=== PATIENT | female | born 1985 | race Caucasian/White ===

== ENCOUNTER → 2016-12-07 | Outpatient (CLI) | payer OTHER ==
--- NOTE | 2016-12-08 07:14 | USB ---
Reason for exam: follow-up at short interval from prior study. History: Family history of breast cancer in maternal grandmother at age 30 and breast cancer in paternal grandmother at age 60. Physical Findings: Nurse Summary: Patient complains of right breast lump decreased in size, less tenderness (nurse mm). US Breast RT Right breast ultrasound including all four quadrants, the retroareolar region and axilla demonstrates node in axilla prior small lesion not seen, scanned palpable with patient sitting. These results were verbally communicated with the patient and result sheet given to the patient on 12/07/16. ASSESSMENT: Negative, BI-RAD 1 RECOMMENDATION: Routine screening mammogram of both breasts at age 41.
== END | disposition home or self-care (01) ==
LOC: RADUSWWP 14:35
PROVIDERS: ATTEND Obstetrics & Gynecology
DX: R92.8 Other abnormal and inconclusive findings on diagnostic imaging of breast (principal)

== ENCOUNTER → 2016-12-21 | Outpatient (CLI) | payer OTHER ==
--- NOTE | 2016-12-21 19:30 | CT ---
EXAMINATION TYPE: CT brain wo con DATE OF EXAM: 12/21/2016 7:24 PM COMPARISON: NONE HISTORY: Right sided headache with occasional stabbing pain CT DLP: 1121 mGycm Automated exposure control for dose reduction was used. FINDINGS: There is mucosal thickening in the right maxillary sinus. There is mild mucosal thickening also in le ft maxillary sinus and the anterior ethmoid air cells. The ventricles of normal size. There is no mass effect nor midline shift. There is no sign of intracr anial hemorrhage. The calvarium is intact. IMPRESSION: Mild maxillary sinusitis. Otherwise negative CT scan of the brain.
== END | disposition home or self-care (01) ==
LOC: RADCTMAIN 18:46
PROVIDERS: ATTEND Family Medicine
DX: R51 Headache (principal)
CPT/HCPCS: 70450

== ENCOUNTER 2017-01-09 11:31 | Emergency (ER) | payer OTHER ==
[2017-01-09 11:34] VITALS: RESP 18
--- NOTE | 2017-01-09 12:07 | ED ---
Nausea/Vomiting/Diarrhea HPI - General Chief complaint: Nausea/Vomiting/Diarrhea Stated complaint: vomitting, syncope Source: patient Mode of arrival: wheelchair Limitations: no limitations - History of Present Illness Initial comments: Patient is a 31-year-old female presents for evaluation for nausea vomiting and diarrhea since 1 AM this morning. Past medical history as below. Patient stated that she has thrown up multiple times over the course of time. States that she feels a little bit better. States that she has nausea. She started up stomach contents. She had chicken fajitas last night. Her daughter had a little bit of it and is not having symptoms. No sick contacts, recent travel, changes in medication, significant changes in diet. She does have pain to the epigastric and right lower quadrant area. It is a dull type of abdominal pain. When she was throwing up overnight, she stated that she stood up too fast and fell down. She did not really lose consciousness she said. There is no head trauma. She returned to baseline after. She denies fever, chills, headache, changes of vision, URI symptoms, shortness of breath, cough, chest pain, pain or burning with urination. - Related Data Previous Rx's Medication Instructions Recorded Dicyclomine [Bentyl] 20 mg PO QID 5 Days 01/09/17 Ondansetron Odt [Zofran Odt] 4 mg PO Q8HR PRN #10 tab 01/09/17 Allergies Allergy/AdvReac Type Severity Reaction Status Date / Time NSAIDS (Non-Steroidal Allergy Severe Nausea & Verified 01/09/17 11:42 Anti-Inflamma Vomiting Review of Systems ROS Statement: Those systems with pertinent positive or pertinent negative responses have been documented in the HPI. ROS Other: All systems not noted in ROS Statement are negative. Past Medical History Past Medical History: No Reported History Additional Past Medical History / Comment(s): cluster headaches History of Any Multi-Drug Resistant Organisms: None Reported Past Surgical History: Adenoidectomy, Tonsillectomy Additional Past Surgical History / Comment(s): tubes placed in ears-1990 Past Anesthesia/Blood Transfusion Reactions: Postoperative Nausea & Vomiting ( PONV) Past Psychological History: No Psychological Hx Reported Smoking Status: Never smoker Past Alcohol Use History: None Reported Past Drug Use History: None Reported - Past Family History Mother Family Medical History: Mitral Valve Prolapse (MVP) Father Family Medical History: Renal Disease General Exam Limitations: no limitations General appearance: alert, in no apparent distress, other (Nontoxic appearing) Head exam: Present: atraumatic, normocephalic, normal inspection Eye exam: Present: normal appearance, PERRL, EOMI. Absent: scleral icterus, conjunctival injection, periorbital swelling ENT exam: Present: normal exam, mucous membranes dry, other (Dry mucous membranes) Neck exam: Present: normal inspection. Absent: tenderness, meningismus, lymphadenopathy Respiratory exam: Present: normal lung sounds bilaterally. Absent: respiratory distress, wheezes, rales, rhonchi, stridor Cardiovascular Exam: Present: regular rate, normal rhythm, normal heart sounds. Absent: systolic murmur, diastolic murmur, rubs, gallop, clicks GI/Abdominal exam: Present: soft, tenderness, normal bowel sounds, other ( Patient did have some self-reported tenderness in the epigastric area in the right lower quadrant area. Does not have a true positive McBurney sign. She has a negative obturator sign, negative psoas sign, negative rebound tenderness , negative Rovsing sign, negative Montemayor sign. Her abdomen is soft. No peritoneal signs.). Absent: distended, guarding, rebound, rigid Extremities exam: Present: normal inspection, full ROM, normal capillary refill. Absent: tenderness, pedal edema, joint swelling, calf tenderness Back exam: Present: normal inspection Neurological exam: Present: alert, oriented X3, CN II-XII intact Psychiatric exam: Present: normal affect, normal mood Skin exam: Present: warm, dry, intact, normal color. Absent: rash Course Vital Signs 01/09/17 11:32 Temperature 97.9 F Pulse Rate 100 Respiratory 18 Rate Blood Pressure 125/74 O2 Sat by Pulse 97 Oximetry Medical Decision Making - Medical Decision Making Patient is a 31-year-old female who presents for evaluation for nausea vomiting and diarrhea. She had a vasovagal/syncope episode while vomiting but did not hit her head and return to normal neurologic function after. She does have abdominal pain to the epigastric and right lower quadrant area. Her history and physical exam findings are not 100% consistent with appendicitis. Discussed that she most likely has a viral gastroenteritis at this time. However, cannot rule this out. Discussed the possibility of getting a computed tomography scan to assess for appendicitis which she refused at this time. Discussed risks and benefits. We'll order basic labs with an EKG, Zofran, Pepcid, Maalox, Bentyl, IV fluids. -Lavatory studies as below. Largely unremarkable. 1330: Reviewed EKG. Sinus rhythm at 74. TX 116. QRS 68. QTc 412. S1 Q 3 T3 pattern. No previous EKGs for comparison. No ST changes otherwise. Add on D- dimer. 1430: D-dimer elevated at 0.53. Discussed the patient. We'll get a CTA of her chest to rule out pulmonary embolism at this time. 1520: CTA of the chest is negative for pulmonary embolism. Believe that her symptoms are related to a viral syndrome at this point. We'll discharge home with Zofran and Bentyl as it seemed to help her symptoms while she was in the emergency department. Discussed her EKG findings. Believe at this time it is a normal variant for her as a CTA of her chest was unremarkable. She is also not tachycardic nor is she hypoxic. Discussed importance of reevaluation in 12- 24 hours if she has persistent right lower quadrant abdominal pain. She states that she does not have pain at this time. She will either come back to our facility or go to her primary care's office for further evaluation. [place] diet. Frequent handwashing. Clear fluids. Discussed signs and symptoms on when to return to emergency department for further evaluation. Comfortable discharge home with follow-up. - Lab Data Result diagrams: 01/09/17 12:48 01/09/17 12:48 Lab Results 01/09/17 01/09/17 01/09/17 Range/Units 12:48 12:48 12:48 WBC 13.6 H (3.8-10.6) k/uL RBC 4.92 (3.80-5.40) m/uL Hgb 14.8 (11.4-16.0) gm/dL Hct 45.4 (34.0-46.0) % MCV 92.3 (80.0-100.0) fL MCH 30.1 (25.0-35.0) pg MCHC 32.6 (31.0-37.0) g/dL RDW 13.5 (11.5-15.5) % Plt Count 287 (150-450) k/uL Neutrophils % 93 % Lymphocytes % 2 % Monocytes % 3 % Eosinophils % 1 % Basophils % 0 % Neutrophils # 12.7 H (1.3-7.7) k/uL Lymphocytes # 0.3 L (1.0-4.8) k/uL Monocytes # 0.4 (0-1.0) k/uL Eosinophils # 0.1 (0-0.7) k/uL Basophils # 0.0 (0-0.2) k/uL D-Dimer (<0.60) mg/L FEU Sodium 142 (137-145) mmol/L Potassium 4.8 (3.5-5.1) mmol/L Chloride 103 (98-107) mmol/L Carbon Dioxide 27 (22-30) mmol/L Anion Gap 12 mmol/L BUN 16 (7-17) mg/dL Creatinine 0.80 (0.52-1.04) mg/dL Est GFR (MDRD) Af Amer >60 (>60 ml/min/1.73 sqM) Est GFR (MDRD) Non-Af >60 (>60 ml/min/1.73 sqM) Glucose 131 H (74-99) mg/dL Calcium 9.1 (8.4-10.2) mg/dL Total Bilirubin 0.8 (0.2-1.3) mg/dL AST 28 (14-36) U/L ALT 44 (9-52) U/L Alkaline Phosphatase 85 (38-126) U/L Total Protein 7.6 (6.3-8.2) g/dL Albumin 4.4 (3.5-5.0) g/dL Urine Color Urine Appearance (Clear) Urine pH (5.0-8.0) Ur Specific [place] (1.001-1.035) Urine Protein (Negative) Urine Glucose (UA) (Negative) Urine Ketones (Negative) Urine Blood (Negative) Urine Nitrate (Negative) Urine Bilirubin (Negative) Urine Urobilinogen (<2.0) mg/dL Ur Leukocyte Esterase (Negative) Urine HCG, Qual (Not Detectd) Influenza Type A RNA Not Detected (Not Detectd) Influenza Type B (PCR) Not Detected (Not Detectd) 01/09/17 01/09/17 01/09/17 Range/Units 13:23 13:23 13:58 WBC (3.8-10.6) k/uL RBC (3.80-5.40) m/uL Hgb (11.4-16.0) gm/dL Hct (34.0-46.0) % MCV (80.0-100.0) fL MCH (25.0-35.0) pg MCHC (31.0-37.0) g/dL RDW (11.5-15.5) % Plt Count (150-450) k/uL Neutrophils % % Lymphocytes % % Monocytes % % Eosinophils % % Basophils % % Neutrophils # (1.3-7.7) k/uL Lymphocytes # (1.0-4.8) k/uL Monocytes # (0-1.0) k/uL Eosinophils # (0-0.7) k/uL Basophils # (0-0.2) k/uL D-Dimer 0.53 (<0.60) mg/L FEU Sodium (137-145) mmol/L Potassium (3.5-5.1) mmol/L Chloride (98-107) mmol/L Carbon Dioxide (22-30) mmol/L Anion Gap mmol/L BUN (7-17) mg/dL Creatinine (0.52-1.04) mg/dL Est GFR (MDRD) Af Amer (>60 ml/min/1.73 sqM) Est GFR (MDRD) Non-Af (>60 ml/min/1.73 sqM) Glucose (74-99) mg/dL Calcium (8.4-10.2) mg/dL Total Bilirubin (0.2-1.3) mg/dL AST (14-36) U/L ALT (9-52) U/L Alkaline Phosphatase (38-126) U/L Total Protein (6.3-8.2) g/dL Albumin (3.5-5.0) g/dL Urine Color Yellow Urine Appearance Clear (Clear) Urine pH 7.5 (5.0-8.0) Ur Specific [place] 1.016 (1.001-1.035) Urine Protein Trace H (Negative) Urine Glucose (UA) Negative (Negative) Urine Ketones Negative (Negative) Urine Blood Negative (Negative) Urine Nitrate Negative (Negative) Urine Bilirubin Negative (Negative) Urine Urobilinogen <2.0 (<2.0) mg/dL Ur Leukocyte Esterase Negative (Negative) Urine HCG, Qual Not Detected (Not Detectd) Influenza Type A RNA (Not Detectd) Influenza Type B (PCR) (Not Detectd) Disposition Clinical Impression: Nausea vomiting and diarrhea Disposition: HOME SELF-CARE Condition: Good Instructions: Acute Nausea and Vomiting (ED), Acute Diarrhea (ED) Prescriptions: Dicyclomine [Bentyl] 20 mg PO QID 5 Days Ondansetron Odt [Zofran Odt] 4 mg PO Q8HR PRN #10 tab PRN Reason: Nausea And Vomiting Referrals: Brian Rene MD [Primary Care Provider] - 1-2 days
[2017-01-09] MEDS ORDERED: MAG HYDROX/AL HYDROX/SIMETH 30 ML CUP PO STA (12:27)
[2017-01-09] MEDS ORDERED: DICYCLOMINE 10 MG/ML 2 ML AMP IM STA (12:27)
[2017-01-09] MEDS ORDERED: FAMOTIDINE 20 MG/2 ML VIAL IV STA (12:27)
[2017-01-09] MEDS ORDERED: SODIUM CHLORIDE 0.9% 1,000 ML IV ONE (12:27)
[2017-01-09] MEDS ORDERED: ONDANSETRON 4 MG/2 ML VIAL IVP STA (12:29)
[2017-01-09] MEDS ORDERED: SODIUM CHLORIDE 0.9% 1,000 ML IV SCH (12:30)
[2017-01-09 13:00] LABS: Basophils % (A) 0 %; CH 30.1; CHCM 32.8; Eosinophils # (A) 0.1 k/uL (0-0.7); Eosinophils % (A) 1 %; HCT 45.4 % (34.0-46.0); HDW 2.48; HGB 14.8 gm/dL (11.4-16.0); Luc # (Auto) 0.08; Luc % (Auto) 1; Lymphocytes # (A) 0.3 k/uL (1.0-4.8); Lymphocytes % (A) 2 %; MCH 30.1 pg (25.0-35.0); MCHC 32.6 g/dL (31.0-37.0); MCV 92.3 fL (80.0-100.0); Mean Platelet Volume 7.8; Monocytes # (A) 0.4 k/uL (0-1.0); Monocytes % (A) 3 %; Neutrophils # (A) 12.7 k/uL (1.3-7.7); Neutrophils % (A) 93 %; RBC 4.92 m/uL (3.80-5.40); RDW 13.5 % (11.5-15.5); WBC 13.6 k/uL (3.8-10.6); WBC (Perox) 13.21
[2017-01-09 13:26] LABS: ALT 44 U/L (9-52); AST 28 U/L (14-36); Alkaline Phosphatase 85 U/L (38-126); Anion Gap 12 mmol/L; Blood Urea Nitrogen 16 mg/dL (7-17); Calcium 9.1 mg/dL (8.4-10.2); Carbon Dioxide 27 mmol/L (22-30); Chloride 103 mmol/L (98-107); Glucose 131 mg/dL (74-99); Non-African American GFR(MDRD) >60 (>60 ml/min/1.73 sqM); Potassium 4.8 mmol/L (3.5-5.1); Sodium 142 mmol/L (137-145); Total Bilirubin 0.8 mg/dL (0.2-1.3); Total Protein 7.6 g/dL (6.3-8.2)
[2017-01-09 13:36] LABS: Appearance,Urine Clear (Clear); Bilirubin,Urine Negative (Negative); Glucose,Urine (UA) Negative (Negative); Ketones,Urine Negative (Negative); Leukocyte Esterase,Urine Negative (Negative); Nitrite,Urine Negative (Negative); PH, Urine 7.5 (5.0-8.0); Protein,Urine Trace (Negative); Specific Gravity,Urine 1.016 (1.001-1.035); UA Billing (MACRO vs. MICRO) CHEM; Urobilinogen,Urine <2.0 mg/dL (<2.0)
[2017-01-09] MEDS ORDERED: RX INFO: IV CONTRAST WAS GIVEN 1 EACH MISC MISCELLANE PRN (14:28)
--- NOTE | 2017-01-09 15:16 | CT ---
CT CHEST FOR PULMONARY EMBOLISM. EXAMINATION TYPE: CT angio chest DATE OF EXAM: 01/09/2017 3:07 PM INDICATION: Pt states of congestion and syncope today. CT DLP: 396.0 mGycm, Automated exposure control for dose reduction was used. CONTRAST: Patient injected with 70 mL of Omnipaque 350. COMPARISON: NONE TECHNIQUE: CT of the chest is performed on a spiral scan at 2 mm thick sections. Study is performed with intravenous contrast timed for evaluation for pulmonary embolism. This will limit additional po rtions of the evaluation. 3-D MIP images reconstructed by the technologist are reviewed on the compu ter in the coronal and sagittal planes. Contrast opacification is slightly less than optimal. FINDINGS: No persistent filling defects are evident to suggest an acute pulmonary embolism. No mediastinal or hilar adenopathy enlarged by CT criteria is evident. The ascending aorta diameter at the level of the main pulmonary artery is 2.6 cm. The main pulmonary artery diameter at the bifur cation is 2.6 cm. Lung windows are clear. Limited CT section through the upper abdomen are unremarkable. IMPRESSIONS: 1. No acute pulmonary embolism.
[2017-01-09 15:45] VITALS: BP 123/57; PULSE 82; TEMP 97.5
== END 2017-01-09 15:45 | disposition home or self-care (01) ==
LOC: EC 11:31
DX: R11.2 Nausea with vomiting, unspecified (principal); R19.7 Diarrhea, unspecified; R10.13 Epigastric pain; R10.31 Right lower quadrant pain; R55 Syncope and collapse; Z88.6 Allergy status to analgesic agent
CPT/HCPCS: 99284; 36415; 93005; 85379; 80053; 85025; 81003; 81025; 87502; 71275; 96374; 96375; 96361 ×3; 96372; J0500; Q9967; J2405

== ENCOUNTER 2018-09-17 15:13 | Emergency (ER) | payer OTHER ==
[2018-09-17 15:34] VITALS: RESP 18
[2018-09-17] MEDS ORDERED: KETOROLAC 30 MG/ML 1 ML VIAL IVP STA (15:42)
[2018-09-17] MEDS ORDERED: SODIUM CHLORIDE 0.9% 1,000 ML IV STA ×2 (15:42)
[2018-09-17] MEDS ORDERED: ACETAMINOPHEN IV (For NPO) 1,000 MG in EMPTY BAG 1 BAG IVPB STA (15:44)
--- NOTE | 2018-09-17 15:44 | ED ---
Chest Pain HPI - General Chief Complaint: Upper Respiratory Infection Stated Complaint: Chest pain Time Seen by Provider: 09/17/18 15:37 Source: patient, RN notes reviewed, old records reviewed Mode of arrival: wheelchair Limitations: no limitations - History of Present Illness Initial Comments: This is a 32-year-old female the ER for evaluation. Patient presents for evaluation regards fever, cough congestion left-sided chest pain occasional shortness of breath and weakness. Patient has had no febrile illness for about a week and a half plus. No nausea vomiting no diarrhea. She was placed on outpatient antibiotic Augmentin with no real significant improvement in symptoms. Patient is no travel history no sick contacts. -: week(s) (2) Onset: during rest, during exertion Pain Location: left chest Pain Radiation: LUE Severity: mild Severity scale (1-10): 3 Consistency: intermittent Improves With: nothing Worsens With: nothing Context: recent illness Anginal Symptoms: dyspnea Other Symptoms: other (Fever) Treatments Prior to Arrival: none - Related Data Home Medications Medication Instructions Recorded Confirmed No Known Home Medications 09/17/18 09/17/18 Allergies Allergy/AdvReac Type Severity Reaction Status Date / Time NSAIDS (Non-Steroidal Allergy Severe Nausea & Verified 09/17/18 17:38 Anti-Inflamma Vomiting Review of Systems ROS Statement: Those systems with pertinent positive or pertinent negative responses have been documented in the HPI. ROS Other: All systems not noted in ROS Statement are negative. EKG Findings - EKG Comments: EKG Findings:: EKG shows sinus tachycardia rate of 109, [place] 170, QRS 60, QTc 406 EKG shows Past Medical History Past Medical History: No Reported History Additional Past Medical History / Comment(s): cluster headaches History of Any Multi-Drug Resistant Organisms: None Reported Past Surgical History: Adenoidectomy, Tonsillectomy Additional Past Surgical History / Comment(s): tubes placed in ears-1990 Past Anesthesia/Blood Transfusion Reactions: Postoperative Nausea & Vomiting ( PONV) Past Psychological History: No Psychological Hx Reported Smoking Status: Never smoker Past Alcohol Use History: None Reported Past Drug Use History: None Reported - Past Family History Mother Family Medical History: Mitral Valve Prolapse (MVP) Father Family Medical History: Renal Disease General Exam Limitations: no limitations General appearance: alert, in no apparent distress Head exam: Present: atraumatic, normocephalic, normal inspection Eye exam: Present: normal appearance, PERRL, EOMI. Absent: scleral icterus, conjunctival injection, periorbital swelling ENT exam: Present: normal exam, mucous membranes moist Neck exam: Present: normal inspection. Absent: tenderness, meningismus, lymphadenopathy Respiratory exam: Present: normal lung sounds bilaterally. Absent: respiratory distress, wheezes, rales, rhonchi, stridor Cardiovascular Exam: Present: regular rate, normal rhythm, normal heart sounds. Absent: systolic murmur, diastolic murmur, rubs, gallop, clicks GI/Abdominal exam: Present: soft, normal bowel sounds. Absent: distended, tenderness, guarding, rebound, rigid Extremities exam: Present: normal inspection, full ROM, normal capillary refill. Absent: tenderness, pedal edema, joint swelling, calf tenderness Back exam: Present: normal inspection Neurological exam: Present: alert, oriented X3, CN II-XII intact Psychiatric exam: Present: normal affect, normal mood Skin exam: Present: warm, dry, intact, normal color. Absent: rash Course Vital Signs 09/17/18 09/17/18 15:30 18:14 Temperature 99.1 F 100.4 F H Pulse Rate 123 H 109 H Respiratory 18 18 Rate Blood Pressure 129/91 117/68 O2 Sat by Pulse 100 98 Oximetry - Reevaluation(s) Reevaluation #1: 09/17/18 20:04 Medical record is reviewed Reevaluation #2: 09/17/18 20:04 Patient does appear improved with fever control, hydration Chest Pain MDM - MDM 32-year-old female the ER for evasive left-sided chest pain CT chest is negative for acute disease, labwork is elevated white count, patient likely has underlying viral syndrome with no acute cause found fluids negative urine is negative. Patient given instructions regarding hydration and fever control. Patient can be discharged home Disposition Clinical Impression: Upper respiratory infection, Fever, Viral syndrome Disposition: HOME SELF-CARE Condition: Fair Instructions: Fever in Adults (ED), Viral Syndrome (ED) Is patient prescribed a controlled substance at d/c from ED?: No Referrals: Edgardo Rivera DO [Primary Care Provider] - 1-2 days
[2018-09-17 17:50] LABS: Basophils % (A) 0 %; Eosinophils # (A) 0.1 k/uL (0-0.7); Eosinophils % (A) 1 %; HCT 41.9 % (34.0-46.0); HGB 13.9 gm/dL (11.4-16.0); Lymphocytes # (A) 0.7 k/uL (1.0-4.8); Lymphocytes % (A) 8 %; MCH 30.2 pg (25.0-35.0); MCHC 33.2 g/dL (31.0-37.0); MCV 90.7 fL (80.0-100.0); Mean Platelet Volume 6.9; Monocytes # (A) 0.5 k/uL (0-1.0); Monocytes % (A) 6 %; Neutrophils # (A) 6.8 k/uL (1.3-7.7); Neutrophils % (A) 84 %; Platelet Count 229 k/uL (150-450); RBC 4.61 m/uL (3.80-5.40); RDW 13.5 % (11.5-15.5); WBC 8.1 k/uL (3.8-10.6)
[2018-09-17 17:55] LABS: D-Dimer 0.52 mg/L FEU (<0.60); Partial Thromboplastin Time 25.9 sec (22.0-30.0); Prothrombin Time 10.2 sec (9.0-12.0)
[2018-09-17 17:59] LABS: ALT 66 U/L (9-52); AST 49 U/L (14-36); Alkaline Phosphatase 78 U/L (38-126); Anion Gap 10 mmol/L; Blood Urea Nitrogen 12 mg/dL (7-17); Calcium 9.2 mg/dL (8.4-10.2); Carbon Dioxide 24 mmol/L (22-30); Chloride 102 mmol/L (98-107); Glucose 97 mg/dL (74-99); Lipase 52 U/L (23-300); Magnesium 1.6 mg/dL (1.6-2.3); Potassium 4.3 mmol/L (3.5-5.1); Sodium 136 mmol/L (137-145); Total Bilirubin 0.8 mg/dL (0.2-1.3)
[2018-09-17 18:20] LABS: Creatine Kinase 50 U/L (30-135)
--- NOTE | 2018-09-17 18:23 | CT ---
EXAMINATION TYPE: CT ANGIO CHEST WITH CONTRAST AND WITH 3-D RECONSTRUCTION RENDERING DATE OF EXAM: 09/17/2018 6:11 PM COMPARISON: 01/09/2017 HISTORY: Left sided chest pain. CT DLP: 392.8 mGycm Automated exposure control for dose reduction was used. CONTRAST: CTA scan of the thorax is performed with IV Contrast, patient injected with 51 mL of Isovue 370, pulmonary embolism protocol. . FINDINGS: LUNGS: The lungs are grossly clear, there is no concerning parenchymal mass or nodule identified. The re is no pleural effusion or pneumothorax seen. The tracheobronchial tree is patent. MEDIASTINUM: There is satisfactory enhancement of the pulmonary artery and its branches, there is no CT evidence for pulmonary embolism. Aorta is unremarkable. There are no greater than 1 cm hilar or me diastinal lymph nodes. No cardiomegaly. No pericardial effusion. OTHER: No additional significant abnormality is seen. IMPRESSION: NO ACUTE PROCESS.
[2018-09-17 18:34] LABS: Creatine Kinase MB <0.2 ng/mL (0.0-2.4); Troponin I <0.012 ng/mL (0.000-0.034)
[2018-09-17] MEDS ORDERED: DEXAMETHASONE SOD PHOSPHATE 10 MG/ML 1 ML VIAL IV STA (19:55)
[2018-09-17 21:27] VITALS: BP 115/79; PULSE 106; TEMP 100.9
== END 2018-09-17 21:28 | disposition home or self-care (01) ==
LOC: EC 15:13
DX: J06.9 Acute upper respiratory infection, unspecified (principal); B34.9 Viral infection, unspecified; Z88.6 Allergy status to analgesic agent
CPT/HCPCS: 99285; 96374; 96375; 96361 ×5; 36415; 93005; 85379; 83880; 80053; 82550; 82553; 83690; 83735; 84484; 85025; 85610; 85730; 87040; 87502; 71275; J1100; J0131; Q9967

== ENCOUNTER → 2019-01-16 | Outpatient (CLI) | payer OTHER | END | disposition home or self-care (01) | LOC: RADECHMAIN 11:26 | PROVIDERS: ATTEND Family Medicine | DX: R00.0 Tachycardia, unspecified (principal) | CPT/HCPCS: 93270; 93271 ==

== ENCOUNTER → 2020-05-26 | Outpatient (CLI) | payer MEDICAID, OTHER | END | disposition home or self-care (01) | LOC: LABWHC1 09:09 | PROVIDERS: ATTEND Pediatrics Pediatric Infectious Diseases | DX: Z11.59 Encounter for screening for other viral diseases (principal) | CPT/HCPCS: U0003; C9803 ==

== ENCOUNTER → 2020-05-27 | Outpatient (CLI) | payer MEDICAID | END | disposition home or self-care (01) | LOC: LABWHC1 13:31 | PROVIDERS: ATTEND Pediatrics Pediatric Infectious Diseases | DX: Z20.828 Contact with and (suspected) exposure to other viral communicable diseases (principal) | CPT/HCPCS: 87635; C9803 ==

== ENCOUNTER → 2020-09-22 | Outpatient (CLI) | payer MEDICAID ==
--- NOTE | 2020-09-22 09:39 | CT ---
EXAMINATION TYPE: CT brain wo con DATE OF EXAM: 09/22/2020 COMPARISON: CT brain December 21, 2016 HISTORY: headache, eye pressure CT DLP: 791 mGycm. Automated Exposure Control for Dose Reduction was Utilized. TECHNIQUE: CT scan of the head is performed without contrast. FINDINGS: There is no acute intracranial hemorrhage, mass effect, or midline shift identified. The ventricles and sulci are within normal limits in size. [place]-white matter differentiation is maintain ed Some posterior superior dural calcifications are redemonstrated. Cerebellar tonsils slightly low-l peggy presenting to level of foramen magnum without greater than 5 mm inferior descent unchanged from prior. The globes are intact and the visualized sinuses are clear on current study. IMPRESSION: No acute intracranial hemorrhage or midline shift is seen. Resolved right maxillary sinu s disease noted.
== END | disposition home or self-care (01) ==
LOC: RADCTMAIN 09:01
PROVIDERS: ATTEND Family Medicine
DX: G43.909 Migraine, unspecified, not intractable, without status migrainosus (principal)
CPT/HCPCS: 70450

== ENCOUNTER → 2021-08-25 | Outpatient (CLI) | payer MEDICAID, OTHER | END | disposition home or self-care (01) | LOC: LABMAIN 01:28 | PROVIDERS: ATTEND Emergency Medicine | DX: Z20.822 Contact with and (suspected) exposure to COVID-19 (principal) | CPT/HCPCS: 87635 ==

== ENCOUNTER → 2021-08-26 | Outpatient (CLI) | payer MEDICAID, OTHER | END | disposition home or self-care (01) | LOC: LABWHC1 02:01 | PROVIDERS: ATTEND Emergency Medicine | DX: Z20.822 Contact with and (suspected) exposure to COVID-19 (principal) | CPT/HCPCS: 87635 ==

== ENCOUNTER 2022-02-10 19:55 | Emergency (ER) | payer MEDICAID, OTHER ==
[2022-02-10] MEDS ORDERED: SODIUM CHLORIDE 0.9% 1,000 ML IV STA (19:57)
[2022-02-10] MEDS ORDERED: ONDANSETRON 4 MG/2 ML VIAL IVP STA (20:11)
[2022-02-10 20:16] VITALS: RESP 20
[2022-02-10 20:19] LABS: Basophils % (A) 1 %; Eosinophils # (A) 0.1 k/uL (0-0.7); Eosinophils % (A) 1 %; HCT 41.6 % (34.0-46.0); HGB 13.7 gm/dL (11.4-16.0); Lymphocytes # (A) 0.4 k/uL (1.0-4.8); Lymphocytes % (A) 6 %; MCH 30.2 pg (25.0-35.0); MCHC 32.9 g/dL (31.0-37.0); MCV 91.8 fL (80.0-100.0); Mean Platelet Volume 8.1; Monocytes # (A) 0.4 k/uL (0-1.0); Monocytes % (A) 6 %; Neutrophils % (A) 86 %; Platelet Count 248 k/uL (150-450); RBC 4.53 m/uL (3.80-5.40); RDW 13.4 % (11.5-15.5)
[2022-02-10] MEDS ORDERED: ACETAMINOPHEN TAB 500 MG TAB PO STA (20:26)
[2022-02-10 20:28] LABS: ALT 54 U/L (4-34); AST 45 U/L (14-36); African American GFR (CKD) >90 (>60 ml/min/1.73 sqM); Albumin 4.2 g/dL (3.5-5.0); Alkaline Phosphatase 79 U/L (38-126); Anion Gap 12 mmol/L; Blood Urea Nitrogen 8 mg/dL (7-17); Calcium 8.7 mg/dL (8.4-10.2); Carbon Dioxide 23 mmol/L (22-30); Chloride 100 mmol/L (98-107); Glucose 117 mg/dL (74-99); Non-African American GFR(CKD) >90 (>60 ml/min/1.73 sqM); Potassium 4.1 mmol/L (3.5-5.1); Sodium 135 mmol/L (137-145); Total Bilirubin 0.8 mg/dL (0.2-1.3); Total Protein 7.3 g/dL (6.3-8.2)
--- NOTE | 2022-02-10 20:56 | XR ---
EXAMINATION TYPE: XR chest 2V DATE OF EXAM: 02/10/2022 COMPARISON: NONE HISTORY: Cough and vomiting TECHNIQUE: 2 views FINDINGS: Heart and mediastinum are normal. Lungs are clear. Diaphragm is normal. Bony thorax appears normal. IMPRESSION: Normal chest.
--- NOTE | 2022-02-10 21:01 | ED ---
URI HPI - General Chief Complaint: Upper Respiratory Infection Stated Complaint: Vomiting,cough Source: patient Mode of arrival: ambulatory Limitations: no limitations - History of Present Illness Initial Comments: 36-year-old female presents emergency department for cough, nausea, vomiting and fevers. He shouldn't began having symptoms yesterday. She does have sick contacts at home. Denies any chest pain. No bloody vomiting. No abdominal pain. No concern for . Patient does have a history of inappropriate tachycardia and feels as if her heart is racing. No other alleviating, precipitating or modifying factors - Related Data Previous Rx's Medication Instructions Recorded Ondansetron Odt [Zofran Odt] 4 mg PO Q8HR PRN #15 tab 02/10/22 Allergies Allergy/AdvReac Type Severity Reaction Status Date / Time NSAIDS (Non-Steroidal Allergy Severe Nausea & Verified 02/10/22 20:16 Anti-Inflamma Vomiting Review of Systems ROS Statement: Those systems with pertinent positive or pertinent negative responses have been documented in the HPI. ROS Other: All systems not noted in ROS Statement are negative. Past Medical History Past Medical History: No Reported History Additional Past Medical History / Comment(s): cluster headaches, meningitis History of Any Multi-Drug Resistant Organisms: None Reported Past Surgical History: Adenoidectomy, Tonsillectomy Additional Past Surgical History / Comment(s): tubes placed in ears-1990 Past Anesthesia/Blood Transfusion Reactions: Postoperative Nausea & Vomiting (PONV) Past Psychological History: No Psychological Hx Reported Past Alcohol Use History: None Reported Past Drug Use History: None Reported - Past Family History Mother Family Medical History: Mitral Valve Prolapse (MVP) Father Family Medical History: Renal Disease General Exam Limitations: no limitations Course Vital Signs 02/10/22 02/10/22 02/10/22 20:14 20:24 21:29 Temperature 100 F H 101.2 F H 100.6 F H Pulse Rate 110 H 96 Respiratory 20 20 Rate Blood Pressure 110/78 121/73 O2 Sat by Pulse 98 97 Oximetry Medical Decision Making - Medical Decision Making Upon arrival patient is placed in room 9. A thorough history and physical exam is performed. IV access established and a liter bolus of normal saline is ordered. Patient initially given for milk of Zofran and 1 g of Tylenol. Laboratory studies were conducted. Patient is swabbed for influenza, RSV and Covid. Patient is influenza positive. Chest x-ray demonstrates no acute process. Reevaluated reports improvement in her symptoms. She'll be discharged home and given a prescription for Zofran. Instructed to increase fluid intake and take Tylenol for fevers. Return for any new or worsening symptoms for patient agreed to treatment plan and was discharged home in same condition - Lab Data Result diagrams: 02/10/22 20:07 02/10/22 20:07 Lab Results 02/10/22 02/10/22 02/10/22 Range/Units 20:07 20:07 20:07 WBC 7.0 (3.8-10.6) k/uL RBC 4.53 (3.80-5.40) m/uL Hgb 13.7 (11.4-16.0) gm/dL Hct 41.6 (34.0-46.0) % MCV 91.8 (80.0-100.0) fL MCH 30.2 (25.0-35.0) pg MCHC 32.9 (31.0-37.0) g/dL RDW 13.4 (11.5-15.5) % Plt Count 248 (150-450) k/uL MPV 8.1 Neutrophils % 86 % Lymphocytes % 6 % Monocytes % 6 % Eosinophils % 1 % Basophils % 1 % Neutrophils # 6.0 (1.3-7.7) k/uL Lymphocytes # 0.4 L (1.0-4.8) k/uL Monocytes # 0.4 (0-1.0) k/uL Eosinophils # 0.1 (0-0.7) k/uL Basophils # 0.0 (0-0.2) k/uL Sodium 135 L (137-145) mmol/L Potassium 4.1 (3.5-5.1) mmol/L Chloride 100 (98-107) mmol/L Carbon Dioxide 23 (22-30) mmol/L Anion Gap 12 mmol/L BUN 8 (7-17) mg/dL Creatinine 0.84 (0.52-1.04) mg/dL Est GFR (CKD-EPI)AfAm >90 (>60 ml/min/1.73 sqM) Est GFR (CKD-EPI)NonAf >90 (>60 ml/min/1.73 sqM) Glucose 117 H (74-99) mg/dL Plasma Lactic Acid Blake 1.2 (0.7-2.0) mmol/L Calcium 8.7 (8.4-10.2) mg/dL Total Bilirubin 0.8 (0.2-1.3) mg/dL AST 45 H (14-36) U/L ALT 54 H (4-34) U/L Alkaline Phosphatase 79 (38-126) U/L Total Protein 7.3 (6.3-8.2) g/dL Albumin 4.2 (3.5-5.0) g/dL Influenza Type A (PCR) (Not Detectd) Influenza Type B (PCR) (Not Detectd) RSV (PCR) (Not Detectd) SARS-CoV-2 (PCR) (Not Detectd) 02/10/22 Range/Units 20:07 WBC (3.8-10.6) k/uL RBC (3.80-5.40) m/uL Hgb (11.4-16.0) gm/dL Hct (34.0-46.0) % MCV (80.0-100.0) fL MCH (25.0-35.0) pg MCHC (31.0-37.0) g/dL RDW (11.5-15.5) % Plt Count (150-450) k/uL MPV Neutrophils % % Lymphocytes % % Monocytes % % Eosinophils % % Basophils % % Neutrophils # (1.3-7.7) k/uL Lymphocytes # (1.0-4.8) k/uL Monocytes # (0-1.0) k/uL Eosinophils # (0-0.7) k/uL Basophils # (0-0.2) k/uL Sodium (137-145) mmol/L Potassium (3.5-5.1) mmol/L Chloride (98-107) mmol/L Carbon Dioxide (22-30) mmol/L Anion Gap mmol/L BUN (7-17) mg/dL Creatinine (0.52-1.04) mg/dL Est GFR (CKD-EPI)AfAm (>60 ml/min/1.73 sqM) Est GFR (CKD-EPI)NonAf (>60 ml/min/1.73 sqM) Glucose (74-99) mg/dL Plasma Lactic Acid Blake (0.7-2.0) mmol/L Calcium (8.4-10.2) mg/dL Total Bilirubin (0.2-1.3) mg/dL AST (14-36) U/L ALT (4-34) U/L Alkaline Phosphatase (38-126) U/L Total Protein (6.3-8.2) g/dL Albumin (3.5-5.0) g/dL Influenza Type A (PCR) Detected A (Not Detectd) Influenza Type B (PCR) Not Detected (Not Detectd) RSV (PCR) Not Detected (Not Detectd) SARS-CoV-2 (PCR) Not Detected (Not Detectd) - EKG Data EKG Comments: EKG demonstrates sinus tachycardia with a rate of 101. MT interval 139. QRS 75. QTC 346. No acute ST segment elevations or depressions Disposition Clinical Impression: Nausea and vomiting, Pyrexia, Cough, Influenza A Disposition: HOME SELF-CARE Condition: Stable Instructions (If sedation given, give patient instructions): Influenza (ED) Additional Instructions: Please follow up with your PCP in 2-4 days. Increase fluid intake. Take Tylenol for fevers. Take the Zofran for nausea. Return for any new or worsening symptoms Prescriptions: Ondansetron Odt [Zofran Odt] 4 mg PO Q8HR PRN #15 tab PRN Reason: Nausea Is patient prescribed a controlled substance at d/c from ED?: No Referrals: Edgardo Rivera DO [Primary Care Provider] - 1-2 days Time of Disposition: 21:24
[2022-02-10] MEDS ORDERED: ONDANSETRON 4 MG ODT STARTER PACK 2 TAB BTL PO STA (21:22)
[2022-02-10 21:30] VITALS: BP 121/73; PULSE 96; TEMP 100.6
== END 2022-02-10 21:45 | disposition home or self-care (01) ==
LOC: EC 19:55
DX: R11.2 Nausea with vomiting, unspecified (principal); R50.9 Fever, unspecified; J10.1 Influenza due to other identified influenza virus with other respiratory manifestations; Z20.822 Contact with and (suspected) exposure to COVID-19
CPT/HCPCS: 99284; 96374; 96361; 36415; 93005; 80053; 83605; 85025; 87636; 71046; J2405; S0119

== ENCOUNTER → 2022-07-05 | Outpatient (CLI) | payer MEDICAID, OTHER ==
--- NOTE | 2022-07-06 14:09 | MR ---
EXAMINATION TYPE: MR brain wo con DATE OF EXAM: 07/05/2022 COMPARISON: CT brain September 22, 2020 and older study 2017 reports only. HISTORY: Anesthesia of skin. Headaches. Leg pain and weakness. TECHNIQUE: Multiplanar, multisequence imaging of the brain and brainstem is performed without IV cont rast. FINDINGS: Diffusion weighted images demonstrate no evidence of a recent infarct or other diffusion abnormality. There is no extraaxial fluid collection or significant white matter signal abnormality. The ventricu lar system and cisternal spaces are normal in size and appearance. The brain volume is age appropria te. Midline structures demonstrate normal morphology. The craniocervical junction appears within normal limits. Normal vascular flow voids are present. Prominent left vertebral artery incidentally noted. N yobani septum deviated to left of midline. [id number] mucosal thickening involving left greater t newby right anterior ethmoid sinuses and mild mucosal thickening inferior right maxillary sinus. Globes are intact bilaterally. IMPRESSION: Mild chronic paranasal sinus disease otherwise unremarkable study.
== END | disposition home or self-care (01) ==
LOC: RADMRIMAIN 10:31
PROVIDERS: ATTEND Family Medicine
DX: J34.89 Other specified disorders of nose and nasal sinuses (principal)
CPT/HCPCS: 70551

== ENCOUNTER 2022-07-12 22:40 | Emergency (ER) | payer MEDICAID, OTHER ==
[2022-07-12 22:46] VITALS: BP 114/80; PULSE 77; RESP 16; TEMP 101.6
[2022-07-12] MEDS ORDERED: ACETAMINOPHEN TAB 325 MG TAB PO STA (22:51)
--- NOTE | 2022-07-12 23:05 | ED ---
Fever HPI - General Chief Complaint: Fever Stated Complaint: Fever,Chest Pain Time Seen by Provider: 07/12/22 22:48 Source: patient Mode of arrival: ambulatory Limitations: no limitations - History of Present Illness Initial Comments: Patient is a 36-year-old female presenting with chief complaint of fever. Patient Tested Positive for Covid Recently, She Tested -3 Days Ago. She States That Today She Started Feeling Fatigue, fever, and chest congestion. She also admits to mild sore throat. Denies cough, ear sinus pain, chest pain, shortness of breath, palpitations, abdominal pain, nausea, vomiting, diarrhea, hematochezia, melena. - Related Data Previous Rx's Medication Instructions Recorded Ondansetron Odt [Zofran Odt] 4 mg PO Q8HR PRN #15 tab 02/10/22 Nirmatrelvir/Ritonavir [Paxlovid 1 unit PO BID 5 Days #1 pack 07/13/22 300-100 mg Pack (Eua)] Allergies Allergy/AdvReac Type Severity Reaction Status Date / Time NSAIDS (Non-Steroidal Allergy Severe Nausea & Verified 07/12/22 22:42 Anti-Inflamma Vomiting Review of Systems ROS Statement: Those systems with pertinent positive or pertinent negative responses have been documented in the HPI. ROS Other: All systems not noted in ROS Statement are negative. Past Medical History Past Medical History: No Reported History Additional Past Medical History / Comment(s): cluster headaches, meningitis History of Any Multi-Drug Resistant Organisms: None Reported Past Surgical History: Adenoidectomy, Tonsillectomy Additional Past Surgical History / Comment(s): tubes placed in ears-1990 Past Anesthesia/Blood Transfusion Reactions: Postoperative Nausea & Vomiting (PONV) Past Psychological History: No Psychological Hx Reported Smoking Status: Never smoker Past Alcohol Use History: None Reported Past Drug Use History: None Reported - Past Family History Mother Family Medical History: Mitral Valve Prolapse (MVP) Father Family Medical History: Renal Disease General Exam Limitations: no limitations General appearance: alert, in no apparent distress Head exam: Present: atraumatic, normocephalic, normal inspection Eye exam: Present: normal appearance, EOMI. Absent: scleral icterus, periorbital swelling Neck exam: Present: normal inspection Respiratory exam: Present: normal lung sounds bilaterally, chest wall t enderness. Absent: respiratory distress, wheezes, rales, rhonchi, stridor Cardiovascular Exam: Present: regular rate, normal rhythm, normal heart sounds. Absent: systolic murmur, diastolic murmur, rubs, gallop, clicks Neurological exam: Present: alert, oriented X3, CN II-XII intact Psychiatric exam: Present: normal affect, normal mood Skin exam: Present: warm, dry, intact, normal color. Absent: rash Course Vital Signs 07/12/22 22:42 Temperature 101.6 F H Pulse Rate 77 Respiratory 16 Rate Blood Pressure 114/80 O2 Sat by Pulse 97 Oximetry Medical Decision Making - Medical Decision Making Patient is a 36-year-old female presenting with chief complaint of fever. Admits to chest congestion, fatigue. On examination heart and lungs are clear to auscultation, there is reproducible chest wall tenderness. Chest x-rays negative for any acute process. Patient is positive for Covid 19. Patient is a candidate for antiviral treatment, will prescribe Paxlovid. Discussed cassidy sloan guidelines and supportive treatment. Follow-up with PCP. Report back to ER with any new or worsening symptoms. Discussed return parameters and answered all questions. Patient conveyed verbal understanding and agreed to the plan. I discussed this case in detail with my attending Dr. Davison - Lab Data Lab Results 07/12/22 Range/Units 22:46 Coronavirus (PCR) Detected A (Not Detectd) Disposition Clinical Impression: COVID Disposition: HOME SELF-CARE Condition: Good Instructions (If sedation given, give patient instructions): COVID-19 (Coronavirus Disease 2019) (ED) Additional Instructions: Quarantine for 5 days, this is then followed by 5 days of strict mask usage at all times while in public. You must be fever free for 24 hours before ending y our quarantine. Take Tylenol as needed for fever and pain control. Follow-up with PCP. Report back to ER with any new or worsening symptoms. Take medication as prescribed. Prescriptions: Nirmatrelvir/Ritonavir [Paxlovid 300-100 mg Pack (Eua)] 1 unit PO BID 5 Days #1 pack Is patient prescribed a controlled substance at d/c from ED?: No Referrals: Edgardo Rivera DO [Primary Care Provider] - 1-2 days Time of Disposition: 00:01
--- NOTE | 2022-07-12 23:08 | XR ---
EXAM: XR Chest, 2 Views CLINICAL HISTORY: ITS.REASON XR Reason: fever TECHNIQUE: Frontal and lateral views of the chest. COMPARISON: 02/10/2022. FINDINGS: Lungs: No consolidative change. Pleural space: No pleural effusions. No pneumothorax. Heart: Unremarkable. No cardiomegaly. Mediastinum: Cardiomediastinal silhouette unremarkable. Bones/joints: Osseous structures and soft tissues are unremarkable. IMPRESSION: No active disease.
== END 2022-07-13 00:30 | disposition home or self-care (01) ==
LOC: EC 22:40
DX: U07.1 COVID-19 (principal); Z88.6 Allergy status to analgesic agent
CPT/HCPCS: 71046; 87635; 99283

== ENCOUNTER 2022-07-14 01:06 | Emergency (ER) | payer MEDICAID, OTHER ==
[2022-07-14 01:58] VITALS: RESP 18
[2022-07-14] MEDS ORDERED: SODIUM CHLORIDE 0.9% 1,000 ML IV ONE (01:58)
[2022-07-14] MEDS ORDERED: DEXAMETHASONE SOD PHOSPHATE 10 MG/ML 1 ML VIAL IV STA (01:58)
[2022-07-14] MEDS ORDERED: ACETAMINOPHEN TAB 500 MG TAB PO STA (01:58)
--- NOTE | 2022-07-14 02:28 | XR ---
EXAMINATION TYPE: XR chest 2V DATE OF EXAM: 07/14/2022 COMPARISON: 07/12/2022 HISTORY: Chest pain TECHNIQUE: 2 view FINDINGS: Heart and mediastinum are normal. Lungs are clear of infiltrate. No heart failure. There ar e no hilar masses. Costophrenic angles are clear. Bony thorax is intact. IMPRESSION: Total chest. No change.
--- NOTE | 2022-07-14 02:31 | ED ---
General Adult HPI - General Chief complaint: Chest Pain Stated complaint: Covid, chest pain Time Seen by Provider: 07/14/22 01:50 Source: patient, RN notes reviewed, old records reviewed Mode of arrival: ambulatory - History of Present Illness Initial comments: 36-year-old female with fever, cough, diagnosed with coronavirus. Patient has had some nausea and vomiting. She has a left upper chest pain. She is otherwise healthy. - Related Data Previous Rx's Medication Instructions Recorded Ondansetron Odt [Zofran Odt] 4 mg PO Q8HR PRN #15 tab 02/10/22 Nirmatrelvir/Ritonavir [Paxlovid 1 unit PO BID 5 Days #1 pack 07/13/22 300-100 mg Pack (Eua)] Allergies Allergy/AdvReac Type Severity Reaction Status Date / Time NSAIDS (Non-Steroidal Allergy Severe Nausea & Verified 07/12/22 22:42 Anti-Inflamma Vomiting Review of Systems ROS Statement: Those systems with pertinent positive or pertinent negative responses have been documented in the HPI. ROS Other: All systems not noted in ROS Statement are negative. Past Medical History Past Medical History: No Reported History Additional Past Medical History / Comment(s): cluster headaches, meningitis History of Any Multi-Drug Resistant Organisms: None Reported Past Surgical History: Adenoidectomy, Tonsillectomy Additional Past Surgical History / Comment(s): tubes placed in ears-1990 Past Anesthesia/Blood Transfusion Reactions: Postoperative Nausea & Vomiting (PONV) Past Psychological History: No Psychological Hx Reported Smoking Status: Never smoker Past Alcohol Use History: None Reported Past Drug Use History: None Reported - Past Family History Mother Family Medical History: Mitral Valve Prolapse (MVP) Father Family Medical History: Renal Disease General Exam General appearance: alert, in no apparent distress Head exam: Present: atraumatic, normocephalic Eye exam: Present: normal appearance, PERRL ENT exam: Present: mucous membranes dry Neck exam: Present: normal inspection. Absent: tenderness, meningismus Respiratory exam: Present: normal lung sounds bilaterally. Absent: respiratory distress, wheezes Cardiovascular Exam: Present: regular rate, normal rhythm GI/Abdominal exam: Present: soft. Absent: distended, tenderness Extremities exam: Present: normal inspection, normal capillary refill Neurological exam: Present: alert, oriented X3, CN II-XII intact. Absent: motor sensory deficit Psychiatric exam: Present: normal affect, normal mood Skin exam: Present: warm, dry, intact. Absent: cyanosis, diaphoretic Course Vital Signs 07/14/22 01:55 Temperature 100.3 F H Pulse Rate 96 Respiratory 18 Rate Blood Pressure 133/84 O2 Sat by Pulse 97 Oximetry EKG Findings - EKG Comments: EKG Findings:: EKG: Sinus rhythm rate of 95, IA interval 133, QRS duration 77, QTC [address] segment elevation Medical Decision Making - Medical Decision Making patient with coronavirus, no respiratory distress, no hypoxia, chest x-ray is clear. Patient given steroids, IV fluids, antiemetics. She does have mild transaminitis likely secondary to coronavirus. After symptomatic treatment she is feeling somewhat better. She will take vitamin C, vitamin D and syncope. Return parameters discussed. patient had been prescribed antivirals but did not begin this medication. - Lab Data Result diagrams: 07/14/22 03:09 07/14/22 03:09 Lab Results 07/14/22 07/14/22 Range/Units 03:09 03:09 WBC 8.4 (3.8-10.6) k/uL RBC 4.81 (3.80-5.40) m/uL Hgb 14.2 (11.4-16.0) gm/dL Hct 44.3 (34.0-46.0) % MCV 92.1 (80.0-100.0) fL MCH 29.6 (25.0-35.0) pg MCHC 32.1 (31.0-37.0) g/dL RDW 13.0 (11.5-15.5) % Plt Count 218 (150-450) k/uL MPV 8.3 Neutrophils % 78 % Lymphocytes % 10 % Monocytes % 7 % Eosinophils % 4 % Basophils % 1 % Neutrophils # 6.5 (1.3-7.7) k/uL Lymphocytes # 0.8 L (1.0-4.8) k/uL Monocytes # 0.6 (0-1.0) k/uL Eosinophils # 0.3 (0-0.7) k/uL Basophils # 0.1 (0-0.2) k/uL Sodium 131 L (137-145) mmol/L Potassium (3.5-5.1) mmol/L Chloride 99 (98-107) mmol/L Carbon Dioxide 20 L (22-30) mmol/L Anion Gap 12 mmol/L BUN 10 (7-17) mg/dL Creatinine 0.79 (0.52-1.04) mg/dL Est GFR (CKD-EPI)AfAm >90 (>60 ml/min/1.73 sqM) Est GFR (CKD-EPI)NonAf >90 (>60 ml/min/1.73 sqM) Glucose 107 H (74-99) mg/dL Calcium 8.7 (8.4-10.2) mg/dL Total Bilirubin 1.8 H (0.2-1.3) mg/dL AST 68 H (14-36) U/L ALT 42 H (4-34) U/L Alkaline Phosphatase 59 (38-126) U/L Total Protein 8.1 (6.3-8.2) g/dL Albumin 4.9 (3.5-5.0) g/dL Disposition Clinical Impression: COVID Disposition: HOME SELF-CARE Condition: Good Is patient prescribed a controlled substance at d/c from ED?: No Referrals: Edgardo Rivera DO [Primary Care Provider] - 1-2 days Time of Disposition: 05:09
[2022-07-14 03:32] LABS: Basophils # (A) 0.1 k/uL (0-0.2); Basophils % (A) 1 %; Eosinophils # (A) 0.3 k/uL (0-0.7); Eosinophils % (A) 4 %; HCT 44.3 % (34.0-46.0); HGB 14.2 gm/dL (11.4-16.0); Lymphocytes # (A) 0.8 k/uL (1.0-4.8); Lymphocytes % (A) 10 %; MCH 29.6 pg (25.0-35.0); MCHC 32.1 g/dL (31.0-37.0); MCV 92.1 fL (80.0-100.0); Mean Platelet Volume 8.3; Monocytes # (A) 0.6 k/uL (0-1.0); Monocytes % (A) 7 %; Neutrophils # (A) 6.5 k/uL (1.3-7.7); Neutrophils % (A) 78 %; Platelet Count 218 k/uL (150-450); RBC 4.81 m/uL (3.80-5.40); WBC 8.4 k/uL (3.8-10.6)
[2022-07-14 03:47] LABS: ALT 42 U/L (4-34); AST 68 U/L (14-36); African American GFR (CKD) >90 (>60 ml/min/1.73 sqM); Albumin 4.9 g/dL (3.5-5.0); Alkaline Phosphatase 59 U/L (38-126); Anion Gap 12 mmol/L; Blood Urea Nitrogen 10 mg/dL (7-17); Calcium 8.7 mg/dL (8.4-10.2); Carbon Dioxide 20 mmol/L (22-30); Chloride 99 mmol/L (98-107); Glucose 107 mg/dL (74-99); Non-African American GFR(CKD) >90 (>60 ml/min/1.73 sqM); Sodium 131 mmol/L (137-145); Total Bilirubin 1.8 mg/dL (0.2-1.3); Total Protein 8.1 g/dL (6.3-8.2)
[2022-07-14] MEDS ORDERED: ONDANSETRON 4 MG/2 ML VIAL IVP STA (04:24)
[2022-07-14] MEDS ORDERED: MORPHINE SULFATE 2 MG/ML SYRINGE IVP STA (04:24)
[2022-07-14] MEDS ORDERED: SODIUM CHLORIDE 0.9% 500 ML 500 ML IV ONE (04:24)
[2022-07-14] MEDS ORDERED: ONDANSETRON 4 MG ODT STARTER PACK 2 TAB BTL PO STA (07:21)
[2022-07-14 08:17] VITALS: BP 132/78; PULSE 90; TEMP 99.4
== END 2022-07-14 08:17 | disposition home or self-care (01) ==
LOC: EC 01:06
DX: U07.1 COVID-19 (principal); Z88.6 Allergy status to analgesic agent
CPT/HCPCS: 99285 ×2; 96374 ×2; 96375 ×3; 96361 ×3; 36415; 93005; 80053; 85025; 71046; J1100; J2405; J2270; S0119